=== PATIENT | female | born 1950 | race Caucasian/White ===

== ENCOUNTER → 2017-11-26 09:14 | Outpatient (CLI) | payer OTHER, SELFPAY ==
--- NOTE | 2017-11-26 | DI.MG.S_ITS ---
BILATERAL DIGITAL SCREENING MAMMOGRAM 3D/2D WITH CAD: 11/26/2017 CLINICAL: Routine screening. Family history of breast cancer. Comparison is made to exams dated: 11/08/2016 mammogram, 09/02/2015 mammogram, and 08/06/2014 mammogram - [facility]. The tissue of both breasts is heterogeneously dense. This may lower the sensitivity of mammography. Current study was also evaluated with a Computer Aided Detection (CAD) system. There are benign vascular calcifications in the left breast. No significant masses, calcifications, or other findings are seen in either breast. There has been no significant interval change. IMPRESSION: BENIGN There is no mammographic evidence of malignancy. A 1 year screening mammogram is recommended. NOTE: For mammograms, a report in lay terms will be sent to the patient. Approximately 15% of breast malignancies will not be visualized mammographically. In the management of a palpable breast mass, a negative mammogram must not discourage biopsy of a clinically suspicious lesion. Electronically Signed By: Anitra wu/nadia:11/26/2017 10:50:42 letter sent: Normal Exam ACR BI-RADS Category 2: Benign Finding(s) 3342F
== END ==
PROVIDERS: Visit Provider Nurse Practitioner Family
DX: Z12.31 Encounter for screening mammogram for malignant neoplasm of breast (principal); Z80.3 Family history of malignant neoplasm of breast
CPT/HCPCS: 77063; 77067

== ENCOUNTER → 2018-05-14 09:51 | Outpatient (CLI) | payer OTHER, SELFPAY ==
--- NOTE | 2018-05-14 | DI.RAD.S_ITS ---
This blank DEXA report has been sent in error by the PACS system. The correct and complete report will be forthcoming in 1-2 days. Thank you for your patience and understanding. Dictated by: Carlos Grullon M.D. on 05/14/2018 at 11:53 Approved by: Carlos Grullon M.D. on 05/14/2018 at 11:56
== END ==
PROVIDERS: PCP Nurse Practitioner Family; Visit Provider Nurse Practitioner Family
DX: M85.852 Other specified disorders of bone density and structure, left thigh (principal); Z78.0 Asymptomatic menopausal state; Z82.62 Family history of osteoporosis
CPT/HCPCS: 77080

== ENCOUNTER → 2019-01-07 08:45 | Outpatient (CLI) | payer OTHER, SELFPAY ==
--- NOTE | 2019-01-07 | DI.MG.S_ITS ---
BILATERAL DIGITAL SCREENING MAMMOGRAM 3D/2D WITH CAD: 01/07/2019 CLINICAL: Routine screening. Family history of breast cancer. Comparison is made to exams dated: 11/26/2017 mammogram, 11/08/2016 mammogram, and 09/02/2015 mammogram - [facility]. The tissue of both breasts is heterogeneously dense. This may lower the sensitivity of mammography. Current study was also evaluated with a Computer Aided Detection (CAD) system. There are benign vascular calcifications in the left breast. There are mole markers on the left breast. No significant masses, calcifications, or other findings are seen in either breast. There has been no significant interval change. IMPRESSION: There is no mammographic evidence of malignancy. A 1 year screening mammogram is recommended. This exam was interpreted at Station ID: [id number]. NOTE: For mammograms, a report in lay terms will be sent to the patient. Approximately 15% of breast malignancies will not be visualized mammographically. In the management of a palpable breast mass, a negative mammogram must not discourage biopsy of a clinically suspicious lesion. Electronically Signed By: Armando short/nadia:01/07/2019 18:46:57 letter sent: Normal Exam ACR BI-RADS Category 2: Benign Finding(s) 3342F
== END ==
PROVIDERS: PCP Nurse Practitioner Family; Visit Provider Nurse Practitioner Family
DX: Z12.31 Encounter for screening mammogram for malignant neoplasm of breast (principal); Z80.3 Family history of malignant neoplasm of breast
CPT/HCPCS: 77063; 77067

== ENCOUNTER → 2020-03-08 10:46 | Outpatient (CLI) | payer MEDICARE, SELFPAY ==
--- NOTE | 2020-03-08 | DI.MG.S_ITS ---
BILATERAL DIGITAL SCREENING MAMMOGRAM 3D/2D WITH CAD: 03/08/2020 CLINICAL: Routine screening. Family history of breast cancer. Comparison is made to exams dated: 01/07/2019 mammogram, 11/26/2017 mammogram, and 11/08/2016 mammogram - [facility]. The tissue of both breasts is heterogeneously dense. This may lower the sensitivity of mammography. Current study was also evaluated with a Computer Aided Detection (CAD) system. No significant masses, calcifications, or other findings are seen in either breast. There has been no significant interval change. IMPRESSION: NEGATIVE There is no mammographic evidence of malignancy. A 1 year screening mammogram is recommended. This exam was interpreted at Station ID: [id number]. NOTE: For mammograms, a report in lay terms will be sent to the patient. Approximately 15% of breast malignancies will not be visualized mammographically. In the management of a palpable breast mass, a negative mammogram must not discourage biopsy of a clinically suspicious lesion. Electronically Signed By: Tom hoskins/nadia:03/08/2020 15:56:12 letter sent: Normal Exam ACR BI-RADS Category 1: Negative 3341F
== END ==
PROVIDERS: PCP Nurse Practitioner Family; Referring Provider Nurse Practitioner Family; Visit Provider Nurse Practitioner Family
DX: Z12.31 Encounter for screening mammogram for malignant neoplasm of breast (principal); Z80.3 Family history of malignant neoplasm of breast
CPT/HCPCS: 77063; 77067

== ENCOUNTER 2021-04-13 20:50 | Emergency (ER) | payer MEDICARE, SELFPAY ==
[2021-04-13 21:00] VITALS: BP 140/75; PULSE 72; RESP 16; TEMP 36.8; O2SAT 96; BMI 33.6
--- NOTE | 2021-04-13 21:08 | DI.RAD.S_ITS ---
PROCEDURE: XR HUMERUS LT 2V INDICATIONS: fall,upper arm pain TECHNIQUE: 2 views of the humerus were acquired. COMPARISON: None. FINDINGS: Bones: Fracture involving the surgical neck and greater tuberosity Soft tissues: No suspicious soft tissue calcifications. IMPRESSION: Proximal left humeral fracture as above Dictated by: Poli Singh M.D. on 04/13/2021 at 21:49 Approved by: Poli Singh M.D. on 04/13/2021 at 21:52
--- NOTE | 2021-04-13 21:14 | ED_ITS ---
HPI - Extremity Injury (Upper) General Chief Complaint: Fall Stated Complaint: fall, left shoulder injury Time Seen by Provider: 04/13/21 20:54 Source: patient Mode of arrival: Wheelchair Limitations: no limitations History of Present Illness HPI narrative: 70-year-old female nonsmoker presents with a chief complaint of a left shoulder injury earlier today after tripping and falling onto her left shoulder. She denies significant pain with any range of motion and improvement with rest. She denies any neck or back pain but thinks she did subtly hit her head. She denies any loss of consciousness. She does not take any blood thinners. She had no vomiting. She denies any neck or back pain. Related Data Home Medications Medication Instructions Recorded Confirmed cetirizine 10 mg tablet 10 mg PO QDAYP PRN #0 10/12/07 [VITAMIN C] #0 04/16/11 bisacodyl 5 mg tablet,delayed 5 mg PO QDAY #0 07/16/11 release (Fleet Laxative (bisacodyl)) vitamin B complex (B 1 tab PO EVERY OTHER DAY #0 10/12/16 Complex-Vitamin B12) omeprazole 20 mg capsule,delayed 20 mg PO QDAY #0 02/19/17 release Previous Rx's Medication Instructions Recorded estradiol 10 mcg vaginal tablet 10 mcg VG SEE INSTRUCTIONS #72 tab 11/19/16 (Vagifem) venlafaxine 150 mg 225 mg PO QDAY #90 cap 11/19/16 capsule,extended release 24 hr venlafaxine 75 mg capsule,extended 225 mg PO QDAY #90 cap 11/19/16 release 24 hr (Effexor XR) nystatin 100,000 unit/gram topical 1 ann TOPICAL BID #30 gm 11/28/16 cream buspirone 5 mg tablet 5 mg PO SEE INSTRUCTIONS #90 tab 12/25/16 methocarbamol 500 mg tablet 500 mg PO QIDP PRN #120 tab 12/25/16 ranitidine HCl 150 mg tablet 150 mg PO BID #180 tab 01/08/17 alendronate 70 mg tablet (Fosamax) 0 PO QWEEK #12 tab 02/19/17 lisinopril 10 mg tablet 10 mg PO QDAYP PRN #180 tab 02/19/17 triamterene 75 0 PO QDAY #90 tab 02/19/17 mg-hydrochlorothiazide 50 mg tablet hydrocodone 5 mg-acetaminophen 325 1 tab PO Q4-6H PRN #30 tab 04/13/21 mg tablet ondansetron 4 mg disintegrating 4 mg PO TID-QID PRN #10 tab 04/13/21 tablet Allergies Allergy/AdvReac Type Severity Reaction Status Date / Time alendronate sodium AdvReac Intermediate neck Verified 04/13/21 21:08 [ALENDRONATE SODIUM] stiffness and pain rosuvastatin [ROSUVASTATIN] AdvReac Intermediate muscle Verified 04/13/21 21:08 aches Review of Systems Review of Systems Narrative: GENERAL: Denies chills, fatigue, malaise, fever, sweats. HEENT: Denies sinus pain, ear pain, sore throat, difficulty swallowing, dizziness. RESPIRATORY: Denies dyspnea, cough, wheezing, hemoptysis, sputum. CARDIOVASCULAR: Denies chest pain, palpitations, orthopnea, edema, GASTROINTESTINAL: Denies nausea, vomiting, abdominal pain, diarrhea, constipation, melena. : Denies dysuria, frequency, incontinence, hematuria, urinary retention. MUSCULOSKELETAL: See HPI SKIN: Denies rash, skin lesions, or other NEUROLOGIC: Denies weakness, headache, numbness, change in speech, confusion, seizures, incoordination. PSYCHIATRIC: No concerning psychosocial issues. 12 point review of systems is negative except for those stated above Patient History Surgical History Status post appendectomy Family History Grandmother Colon cancer Social History Smoking Status: Unknown if ever smoked Smoking Status: Unknown if ever smoked alcohol intake frequency: holidays/special occasions only Substance Use Type: does not use Exam Narrative Exam Narrative: GENERAL: [70] year old patient appears stated age. Well- developed patient, in mild distress. GCS 15 HEAD: No evidence of depressed skull fracture, no abrasion or laceration, very subtle small contusion right frontal bone EYES: Pupils equal round and reactive. Extraocular motions intact. No scleral icterus. No injection or drainage. ENT: Nose without bleeding, purulent drainage. Throat without erythema, tonsillar hypertrophy or exudate. Airway patent. NECK: Trachea midline. Non tender CARDIOVASCULAR: Regular rate and rhythm without murmurs, gallops, or rubs. RESPIRATORY: Clear to auscultation. Breath sounds equal bilaterally. No wheezes, rales, or rhonchi. GASTROINTESTINAL: Abdomen soft, non-tender, nondistended. EXTREMITIES: Left shoulder tender to palpate, no obvious deformity, decreased range of motion secondary to pain. No pain in elbow or wrist. BACK: Nontender without deformity or crepitance. No flank tenderness. NEURO: AOx3. SKIN: No rash or erythema of visible areas Initial Vital Signs Initial Vital Signs: Vital Signs Temperature 98.2 F 04/13/21 21:00 Pulse Rate 72 04/13/21 21:00 Respiratory Rate 16 04/13/21 21:00 Blood Pressure 140/75 04/13/21 21:00 Pulse Oximetry 96 04/13/21 21:00 Procedures Orthopedic Splinting/Casting Injury #1: Side: left Upper Extremity Injury Location: shoulder Upper Extremity Immobilizer: sling/shoulder immobilizer (Along with humeral brace) Post splinting neuro exam: intact Post splinting vascular exam: intact Placed by: Nursing Course Orders Ordered: ED Orders 04/13/21 21:08 XR humerus LT 2V Stat Discontinued Medications Hydrocodone Bitart/Acetaminophen (Hydrocodone/Acet 5/325 Prepack) 1 bottle MISC SEEINSTR ONE Stop: 04/13/21 21:40 Last Admin: 04/13/21 21:54 Dose: 1 bottle Documented by: KELSEAOTEM Ondansetron HCl (Ondansetron 4 Mg Odt Prepack) 1 bottle MISC SEEINSTR ONE Stop: 04/13/21 21:40 Last Admin: 04/13/21 21:54 Dose: 1 bottle Documented by: KBROTEHelena Vital Signs Vital signs: Vital Signs - 8 hr 04/13/21 21:00 Temperature 98.2 F Pulse Rate 72 Respiratory Rate 16 Blood Pressure 140/75 Pulse Oximetry 96 MDM - Extremity Injury (Upper) Imaging Data Extremity x-ray #1: Radiologist's Impression: [address] [place] [address] [id number] ReportSigned Patient: Sallie Gibbs LDR#: [id number]: 9Acct:[id number]/Sex: 70 / FDate of Service: 04/13/21Loc: EDAccession Number: [id number] Procedure: XR humerus LT 2V Ordering Provider: Farooq Royal D.O. PROCEDURE: XR HUMERUS LT 2V INDICATIONS: fall,upper arm pain TECHNIQUE: 2 views of the humerus were acquired. COMPARISON: None. FINDINGS: Bones: Fracture involving the surgical neck and greater tuberosity Soft tissues: No suspicious soft tissue calcifications. IMPRESSION: Proximal left humeral fracture as above Dictated by: Poli Singh M.D. on 04/13/2021 at 21:49 Approved by: Poli Singh M.D. on 04/13/2021 at 21:52 Discharge Plan Departure Patient Disposition: Home Clinical Impression: Fracture of proximal end of left humerus Qualifiers: Encounter type: initial encounter Fracture type: closed Fracture alignment: nondisplaced Instructions: Humeral Shaft Fracture Activity Restrictions/Additional Instructions: *You have been diagnosed with [Olya ] *What to do: *Please continue to take your regular medications as directed. [x ] New medication prescriptions sent to your pharmacy: [ [facility]] [ ] New medication written as a paper prescription [x] Tylenol and occasional Motrin for pain *Please follow up with Dr. Manuel Dobson] of [facility] in 2-3 days, call for an appointment. Let them know you were seen in the Emergency Department and that we ask that you be seen in follow up. We will electronically transmit a record of today's note if your PCP is in our system *Return to Emergency Department if you should have any new, worsening or concerning symptoms, such as [worsening pain, significant swelling, cold extremities, numbness, tingling, weakness or other bothersome symptoms Splint Care: Keep splint clean and dry. Elevated affected body part to decrease swelling. OK to use ice pack on the affected body part. Use for 15-20 minutes each time, for 5-6x per day. If you develop worsening pain, numbness, tingling, discoloration of the affected body part, loosen the splint by loosening the JOSE ROBERTO wrap, and either see your doctor for an urgent re-assessment, or return to the Emergency Department. Return to the Emergency Department for any new or worsening symptoms. Prescriptions: New hydrocodone-acetaminophen 5-325 mg tablet 1 tab PO Q4-6H PRN (Reason: pain) Qty: 30 RF: 0 ondansetron 4 mg tablet,disintegrating 4 mg PO TID-QID PRN (Reason: nausea and vomiting) Qty: 10 RF: 0 No Action cetirizine 10 MG tablet 10 mg PO QDAYP PRNQty: 0 RF: 0 [VITAMIN C] Qty: 0 RF: 0 bisacodyl [Fleet Laxative (bisacodyl)] 5 MG tablet,delayed release (DR/EC) 5 mg PO QDAY Qty: 0 RF: 0 vitamin B complex [B Complex-Vitamin B12] 1 EACH tablet 1 tab PO EVERY OTHER DAY Qty: 0 RF: 0 venlafaxine [Effexor XR] 75 MG capsule,extended release 24hr 225 mg PO QDAY Qty: 90 RF: 0 venlafaxine 150 MG capsule,extended release 24hr 225 mg PO QDAY Qty: 90 RF: 0 estradiol [Vagifem] 10 MCG tablet 10 mcg VG SEE INSTRUCTIONS Qty: 72 RF: 1 nystatin 30 GM cream 1 ann Topical BID Qty: 30 RF: 2 buspirone 5 MG tablet 5 mg PO SEE INSTRUCTIONS Qty: 90 RF: 2 methocarbamol 500 MG tablet 500 mg PO QIDP PRNQty: 120 RF: 0 ranitidine HCl 150 MG tablet 150 mg PO BID Qty: 180 RF: 1 omeprazole 20 MG capsule,delayed release(DR/EC) 20 mg PO QDAY Qty: 0 RF: 0 lisinopril 10 MG tablet 10 mg PO QDAYP PRNQty: 180 RF: 1 triamterene-hydrochlorothiazid 75 MG/50 MG tablet 0 PO QDAY Qty: 90 RF: 1 alendronate [Fosamax] 70 MG tablet 0 PO QWEEK Qty: 12 RF: 3 Referrals: Starla Dobson MD [Physician] - Ally Eller ARNP [Primary Care Provider] -
[2021-04-13] MEDS: ONDANSETRON 4 MG ODT PREPACK 1 BOTTLE MISC (21:54)
[2021-04-13] MEDS: HYDROCODONE/ACET 5/325 PREPACK 1 BOTTLE MISC (21:54)
== END 2021-04-13 22:12 | disposition home or self-care (01) ==
PROVIDERS: Emergency Provider Emergency Medicine; PCP Nurse Practitioner Family
DX: S42.202A Unspecified fracture of upper end of left humerus, initial encounter for closed fracture (principal); W01.0XXA Fall on same level from slipping, tripping and stumbling without subsequent striking against object, initial encounter
CPT/HCPCS: 73060; 99283; 99284

== ENCOUNTER → 2021-10-03 10:06 | Outpatient (CLI) | payer MEDICARE, SELFPAY ==
--- NOTE | 2021-10-03 | DI.MG.S_ITS ---
BILATERAL DIGITAL SCREENING MAMMOGRAM 3D/2D WITH CAD: 10/03/2021 CLINICAL: Routine screening. Family history of breast cancer. Comparison is made to exams dated: 03/08/2020 mammogram, 01/07/2019 mammogram, and 11/26/2017 mammogram - [facility]. The tissue of both breasts is heterogeneously dense. This may lower the sensitivity of mammography. Current study was also evaluated with a Computer Aided Detection (CAD) system. No significant masses, calcifications, or other findings are seen in either breast. There has been no significant interval change. IMPRESSION: NEGATIVE There is no mammographic evidence of malignancy. A 1 year screening mammogram is recommended. This exam was interpreted at Station ID: [id number]. NOTE: For mammograms, a report in lay terms will be sent to the patient. Approximately 15% of breast malignancies will not be visualized mammographically. In the management of a palpable breast mass, a negative mammogram must not discourage biopsy of a clinically suspicious lesion. Electronically Signed By: Tom hoskins/nadia:10/03/2021 10:43:13 letter sent: Normal Exam ACR BI-RADS Category 1: Negative 3341F
== END ==
PROVIDERS: PCP Nurse Practitioner Family; Referring Provider Nurse Practitioner Family; Visit Provider Nurse Practitioner Family
DX: Z12.31 Encounter for screening mammogram for malignant neoplasm of breast (principal); M85.89 Other specified disorders of bone density and structure, multiple sites; Z13.820 Encounter for screening for osteoporosis; Z80.3 Family history of malignant neoplasm of breast; Z78.0 Asymptomatic menopausal state; Z87.311 Personal history of (healed) other pathological fracture
CPT/HCPCS: 77063; 77067; 77080

== ENCOUNTER → 2022-10-08 14:17 | Outpatient (CLI) | payer MEDICARE, SELFPAY ==
--- NOTE | 2022-10-08 14:21 | DI.MG.S_ITS ---
BILATERAL DIGITAL SCREENING MAMMOGRAM 3D/2D WITH CAD: 10/08/2022 CLINICAL: Routine screening. Family history of breast cancer. Comparison is made to exams dated: 10/03/2021 mammogram, 03/08/2020 mammogram, 01/07/2019 mammogram, and 11/26/2017 mammogram - [facility]. Both breasts are heterogeneously dense, which may obscure small masses (category c / 51-75% glandular tissue). Current study was also evaluated with a Computer Aided Detection (CAD) system. There are benign calcifications in the right breast. There also are benign vascular calcifications in both breasts. No significant masses, calcifications, or other findings are seen in either breast. There has been no significant interval change. IMPRESSION: BENIGN There is no mammographic evidence of malignancy. A 1 year screening mammogram is recommended. Based on the Tyrer Cuzick model (a risk assessment model) the patient's lifetime risk is 9.7% and her 10 year risk is 8.7%. According to the ACR, ACS, and NCCN guidelines, an annual breast MRI exam along with mammogram is recommended if the patient's lifetime risk is 20% or greater. This exam was interpreted at Station ID: [id number]. NOTE: For mammograms, a report in lay terms will be sent to the patient. Approximately 15% of breast malignancies will not be visualized mammographically. In the management of a palpable breast mass, a negative mammogram must not discourage biopsy of a clinically suspicious lesion. Electronically Signed By: Mo interiano/nadia:10/09/2022 08:39:22 letter sent: Normal Exam ACR BI-RADS Category 2: Benign Finding(s) 3342F
== END ==
PROVIDERS: PCP Nurse Practitioner Family; Referring Provider Nurse Practitioner Family; Visit Provider Nurse Practitioner Family
DX: Z12.31 Encounter for screening mammogram for malignant neoplasm of breast (principal); Z80.3 Family history of malignant neoplasm of breast
CPT/HCPCS: 77063; 77067

== ENCOUNTER → 2023-10-15 13:47 | Outpatient (CLI) | payer MEDICARE, SELFPAY ==
--- NOTE | 2023-10-15 13:49 | DI.CT.S_ITS ---
PROCEDURE: CT UE LT WO CON INDICATIONS: ARTHRITIS OF LEFT GLENOHUMERAL JOINT TECHNIQUE: Noncontrast 0.75 mm thick sections acquired from the acromioclavicular joint to the inferior scapula, with coronal and sagittal reformatting. Quality Addendum: For radiation dose reduction, the following was used: automated exposure control, adjustment of mA and/or kV according to patient size. COMPARISON: [facility] [place], [place], XR SHOULDER 2+ VIEWS LEFT, 10/02/2023, 9:44. FINDINGS: Image quality: Diagnostic Bones: Severe glenohumeral degenerative changes. Mild to moderate acromioclavicular degenerative changes. There is osteolytic changes in the periarticular region of the humeral head. Likely old impaction fracture of the humeral neck. Partially seen cervical and thoracic spondylotic changes. Soft tissues: Bilateral thyroid nodules over 2 cm, consider nonurgent sonographic follow-up. Calcified hilar lymph nodes partially seen, likely due to prior granulomatous process. Suspected small effusion. IMPRESSION: Likely prior impaction fracture with chronic deformity of the humeral neck. Osteolytic changes of the humeral head. Advanced glenohumeral degenerative changes. Mild to moderate acromioclavicular degenerative changes. Suspected small glenohumeral effusion. If there is high concern for further derangement, consider MRI evaluation. Dictated by: Shahbaz Jimenez M.D. on 10/15/2023 at 16:35 Approved by: Shahbaz Jimenez M.D. on 10/15/2023 at 16:39
== END ==
LOC: CT 13:48
PROVIDERS: PCP Family Medicine; Referring Provider Orthopaedic Surgery; Visit Provider Orthopaedic Surgery
DX: M19.012 Primary osteoarthritis, left shoulder (principal)
CPT/HCPCS: 73200

== ENCOUNTER 2023-12-12 06:50 | Day surgery (SDC) | payer MEDICARE, SELFPAY ==
[2023-12-03 12:45] VITALS: BMI 30.4
--- NOTE | 2023-12-12 06:00 | DI.RAD.S_ITS ---
PROCEDURE: XR SHOULDER LT 1V INDICATIONS: post-op total left TECHNIQUE: 1 views of the shoulder were acquired. COMPARISON: [facility], XR SHOULDER 2+ VIEWS LEFT, 10/02/2023, 9:44. FINDINGS: Postoperative changes reflecting left shoulder arthroplasty. Hardware is intact with good anatomic alignment. Postoperative soft tissue changes are present.. IMPRESSION: Postsurgical changes reflecting shoulder arthroplasty. Dictated by: Francy Maguire M.D. on 12/12/2023 at 11:22 Approved by: Francy Maguire M.D. on 12/12/2023 at 11:23
[2023-12-12] MEDS: LACTATED RINGERS 1,000 ML 42 ML IV ×2 (07:05→09:48)
[2023-12-12 07:20] VITALS: BP 102/72; PULSE 81; RESP 16; TEMP 37; O2SAT 95; BMI 30.6
[2023-12-12] MEDS: ACETAMINOPHEN 325 MG TABLET 975 MG PO (07:39)
--- NOTE | 2023-12-12 07:45 | PM.PREOP ---
Pre-operative Note Interval Note History & Physical reviewed/Exam performed by Physician: Yes Changes to H&P: No
--- NOTE | 2023-12-12 07:55 | SUR.OPER ---
Beach chair with skytron shoulder positioner. Lower body on padded OR bed. Head in foam padded head cradle, secured with straps. Non-operative arm secured <90 degrees abduction. Pillow under knees. Safety belt at thigh. Cloth tape over blanket over lower legs.
[2023-12-12 07:57] VITALS: BMI 30.6
--- NOTE | 2023-12-12 08:11 | SUR.PREOP ---
Block start time [0803] . Monitoring initiated and maintained throughout procedure. Oxygen and medications given per anesthesiologist instructions. Patient remained stable throughout procedure, no adverse reactions noted. Block end time [0810].
[2023-12-12] MEDS: CEFAZOLIN 2 GM/100 ML PREMIX 100 ML IV (09:15)
[2023-12-12] MEDS: TRANEXAMIC ACID 1,000 MG VIAL 1000 MG INJ (09:20)
[2023-12-12] MEDS: BUPIVACAINE 0.25% (PF) 30 ML, EPINEPHrine 0.15 MG INJ (09:42)
--- NOTE | 2023-12-12 10:51 | P.OP_ITS ---
Operative Date/Time/Diagnoses Date of procedure: 12/12/23 Time of procedure: 10:51 Pre-op diagnosis: Left proximal humerus avascular necrosis Post-op diagnosis: same Procedure & Clinicians Procedure: Left reverse total shoulder arthroplasty Same procedure as scheduled: Yes Indications: Indications: This is a 73-year-old female who has avascular necrosis status post proximal humerus fracture. Symptoms have been present for years, insidious onset. Patient has failed a reasonable attempt at conservative therapy. After extensive discussion in clinic, they wished to go forward with surgery. Risks and benefits were described including the risk of infection, bleeding, damage to internal structures including nerves. We also discussed the risk of failure of surgery and the need for revision surgery as well as the risk of anesthesia. The patient expressed understanding with these risks and wished to go forward with surgery. Surgeon: Benito Rojo Duralumin Mechanic: Analy Maguire Click Yes if Unassisted: Yes Operative Notes Findings: Findings: Osteoarthritis of the glenoid and humeral head with an intact rotator cuff as noted on preoperative imaging and under direct visualization Closure Type: primary Prosthetic devices, grafts, tissues, transplants, or devices: Tornier implants Base plate: standard 25 mm, Glenosphere: Standard 36 mm Stem: Perform 1 Poly: +0 concentric Estimated Blood Loss (mL): 100 Procedure in detail: Patient was seen in the preoperative holding unit. The correct left shoulder was identified and marked with my initials. Again we discussed the risks and benefits of surgery and they wished to go forward with surgery. The patient was brought back to the operating room and placed supine on the operating table. Smooth endotracheal intubation was performed by anesthesia. All prominences were padded and they were placed into the beach chair position. Intravenous antibiotics were given. The left shoulder was then prepped with the standard sterile preparation and draping. A time-out was then performed in my initials were again identified on the correct shoulder. 1 g of IV tranexamic acid was given. A standard deltopectoral incision was made. Skin flaps were made. The cephalic vein was identified and retracted laterally. This was protected throughout the remainder of the case. Sharp dissection was made along the deltoid, subacromial and subcoracoid space to release adhesions. The conjoined tendon was identified and the axillary nerve was palpated and continuous using the tug test. It was protected throughout the remainder of the case. A brown retractor was placed underneath the deltoid muscle and a darach retractor underneath the conjoint tendon. The subscapularis muscle was ntoed to be intact. The anterior circumflex artery and associated veins on the lower border of the subscapularis were identified and tied off using 0-Vicryl. The biceps tendon was identified in the bicipital groove. This was released from its sheath, and taken from its origin on the glenoid and tied into the pectoralis tendon for a solid tenodesis. We then began a subscapularis peel. The subscapularis was tagged with an Ethibond suture. A 360 degree circumferential release of the subscapularis was performed with protection of the axillary nerve. The coracohumeral ligament was released at the base of the coracoid. The shoulder was then dislocated. Osteophytes were removed using combination of rongeur and osteotome. The rotator cuff was noted to be intact. An intramedullary guide was used set at version of 20?. Using an oscillating saw a conservative humeral head cut was made. Impaction reamers were reamed up to a size 1 stem with a built-in angle 135?. A neck protector was placed. Attention was then turned to the glenoid. After retracting the humeral head posteriorly a circumferential release was performed of the capsule with protection of the axillary nerve. The labrum was then released starting at the biceps anchor and going around the rim a small amount of triceps was released from the inferior glenoid. A center guide pin was then placed using the guide, followed by Reamer. After adequate cartilage was removed the boss was reamed and the centeral hole was drilled and measured. The base plate was then implanted and screwed into place. The peripheral screws were then sequentially drilled, measured, and placed. A 36 standard glenosphere was then selected and screwed into place onto the base plate. Turning back to the humerus, the humeral head was delivered and trialed with a 0 concentric. The arm was taken through range of motion and this was felt to be stable. The trial was then removed and a dilute Betadine wash was then performed with 1 L of sterile saline. Before placing the final implant, drill holes were made in the bicipital groove for the subscapularis repair, and sutures were passed through the drill holes. The final stem was then impacted into the humerus. The shoulder was then reduced and again brought through range of motion and was felt to be stable. The subscapularis was then repaired using a modified racking hitch with nice loupes. The deltopectoral interval was then closed with #2 Ethibond. The skin was closed with 2-0 vicryl and 3-0 Monocryl followed by Aquacel dressing. Patient was awoken from anesthesia and brought back to the postoperative recovery unit without issue. They were placed into a sling. Assisting participation: This operation could not have been safely performed (without compromising the technical results or length of the procedure) without the assistance of a skilled registered nurse surgical services. The registered nurse surgical services was medically necessary for proper positioning, retraction and manipulation of instruments, proper exposure, graft prep, and manipulation of tissue. Complications: none Post-operative Condition: stable Disposition: PACU Plan for aftercare: Postoperative instructions: Sling to remain on for 6 weeks. No external rotation past neutral for 6 weeks. Okay for the sling to come off for shower. Okay to shower over the Aquacel dressing. If any water gets underneath the dressing, remove the dressing. First postoperative visit in 2 weeks.
[2023-12-12 10:52] VITALS: BP 98/41; PULSE 94; RESP 15; TEMP 36.5; O2SAT 94
[2023-12-12 10:57] VITALS: BP 115/63; PULSE 83; RESP 21; TEMP 36.4; O2SAT 94
[2023-12-12 11:04] VITALS: BP 108/56; PULSE 84; RESP 14; TEMP 36.4; O2SAT 94
[2023-12-12 11:10] VITALS: BP 98/56; PULSE 81; RESP 18; TEMP 36.3; O2SAT 97
[2023-12-12 11:50] VITALS: BP 102/57; PULSE 80; RESP 16; TEMP 36.4; O2SAT 97
== END 2023-12-12 12:01 | disposition home or self-care (01) ==
LOC: OR 06:51 → AC 06:53
PROVIDERS: PCP Family Medicine; Referring Provider Orthopaedic Surgery; Visit Provider Orthopaedic Surgery
PROC: (CPT 23472; principal; 2023-12-12 08:30)
DX: M19.012 Primary osteoarthritis, left shoulder (principal); M87.222 Osteonecrosis due to previous trauma, left humerus; G89.18 Other acute postprocedural pain; M25.712 Osteophyte, left shoulder
CPT/HCPCS: 23472; 64450; 73020; C1776; J0171; J0330; J0690; J1100; J1885; J2405; J2704; J3010

== ENCOUNTER → 2024-06-16 09:04 | Outpatient (CLI) | payer MEDICARE, SELFPAY ==
--- NOTE | 2024-06-16 09:07 | DI.CT.S_ITS ---
PROCEDURE: CT CHEST WO CON INDICATIONS: PULMONARY NODULE TECHNIQUE: Noncontrast 5 mm thick sections acquired from the pulmonary apices to the posterior costophrenic angles. 1 mm lung window, 5 mm thick coronal and sagittal and 7 mm axial MIP reformats were then acquired. For radiation dose reduction, the following was used: automated exposure control, adjustment of mA and/or kV according to patient size. COMPARISON: [facility], CT, THORAX WITH CONTRAST, 04/17/2016, 11:55. [facility] [place], [place], XR THORACIC SPINE 2 VIEWS, 08/30/2021, 10:14. FINDINGS: Image quality: Diagnostic. Lower Neck: No enlarged lymph nodes. Thyroid: The thyroid is enlarged, with heterogeneous attenuation; this is burden previously worked up in 2016. Axillae: No enlarged lymph nodes. Chest Wall: Unremarkable. Bones: Compression deformities of the T12, L1, L2 and T6 vertebral body. There is lucency in the superior endplate of T1 (series 4, image 60). 3 mm endplate retropulsion at T12. Lungs and Pleura: No pneumothorax or pleural effusions. Calcified granuloma in the left lower lobe. Mild centrilobular emphysema. No suspicious pulmonary nodules. Heart: Heart size is normal. No pericardial effusion. Thoracic Vessels: The aorta and pulmonary arteries demonstrate normal size. Mediastinum and Beatriz: No enlarged lymph nodes. Calcified left hilar node. Esophagus: No wall thickening. No hiatal hernia. Upper Abdomen: Visualized upper abdomen solid organs and bowel loops appear normal. IMPRESSION: Benign calcified granuloma of the left lower lobe. Multiple compression deformities, without significant endplate retropulsion. Questionable lucency in the superior endplate of the T1 vertebral body. This probably represents artifact from the adjacent left shoulder arthroplasty, but spinal mass is not entirely excluded. Consider MRI with contrast for confirmation and correlate with symptoms. Dictated by: Roque Cardenas M.D. on 06/19/2024 at 12:30 Approved by: Roque Cardenas M.D. on 06/19/2024 at 12:38
== END ==
PROVIDERS: PCP Family Medicine; Referring Provider Physician Assistant; Visit Provider Physician Assistant
DX: R91.1 Solitary pulmonary nodule (principal); E04.9 Nontoxic goiter, unspecified; J43.2 Centrilobular emphysema; M43.8X4 Other specified deforming dorsopathies, thoracic region
CPT/HCPCS: 71250

== ENCOUNTER 2024-08-11 08:13 | Day surgery (SDC) | payer MEDICARE, SELFPAY ==
--- NOTE | 2024-08-11 | PATH_ITS ---
[facility] Accession Number: [id number] No. of containers..01 Tissue . 01 Material submitted: . sigmoid colon - SIGMOID POLYP . 01 Diagnosis: SIGMOID COLON POLYP: Colonic mucosa with benign lymphoid aggregate. No dysplasia or neoplasia identified. Deeper level examination performed. MRV 08/13/2024 1341 Local . 01 Electronically signed: . Pinky Contreras MD, Pathologist NPI- [id number] . 01 Gross description: . SIGMOID POLYP: Received in formalin is 1 fragment(s) of bhatt, soft tissue measuring 0.8 x 0.3 x 0.3 cm submitted entirely in 1 cassette(s) /AJAY 08/12/2024 1858 Local . 01 Pathologist provided ICD-10: K63.89 . 01 CPT . 882344 Specimen Comment: A courtesy copy of this report has been sent to [facility] Performed at: [address] [address], [place], [place] [id number] MD Hugo Reynolds MD Phone: [phone]
[2024-08-11 08:37] VITALS: BP 133/87; PULSE 92; RESP 14; TEMP 37.1; O2SAT 95
[2024-08-11] MEDS: LACTATED RINGERS 1,000 ML 42 ML IV (08:37)
--- NOTE | 2024-08-11 09:22 | PM.HP.IH.1 ---
History of Present Illness History of Present Illness Date Patient Seen: 08/11/24 Time Patient Seen: 09:23 Chief complaint: Screening Colonoscopy Narrative: 73-year-old white female, family history of colon cancer in her father, previous colonoscopy is unremarkable presents for colon cancer screening. [facility] Medical History (Updated 08/11/24 @ 09:24 by Manoj Kirk MD) Colon cancer screening History of COVID-19 (02/2023) HLD (hyperlipidemia) Seasonal allergies Loss of hearing Deafness in right ear Arthritis Meniere's disease of right ear Depression Anxiety GERD (gastroesophageal reflux disease) Asthma Surgical History History of repair of hiatal hernia Hx of appendectomy History of surgery Family History Grandmother Colon cancer Social History household members: spouse Smoking Status: Unknown if ever smoked alcohol intake: current Meds Home Medications and Allergies Home Medications Medication Instructions Recorded Confirmed Type cetirizine 10 mg tablet 10 mg PO QDAYP PRN Seasonal 10/12/07 08/11/24 History allergies ##0 bisacodyl 5 mg tablet,delayed 5 mg PO QDAY ##0 07/16/11 12/03/23 History release (Fleet Laxative (bisacodyl)) estradiol 10 mcg vaginal tablet 10 mcg VG SEE INSTRUCTIONS #72 tabs 11/19/16 08/11/24 Rx (Vagifem) buspirone 5 mg tablet 5 mg PO SEE INSTRUCTIONS #90 tabs 12/25/16 08/11/24 Rx omeprazole 20 mg capsule,delayed 20 mg PO QDAY ##0 02/19/17 08/11/24 History release aspirin 81 mg capsule 81 mg PO DAILY 12/03/23 08/11/24 History nystatin 100,000 unit/gram topical 1 ann topical BID PRN Rash 12/03/23 08/11/24 History cream triamterene 75 0.5 tab PO QDAY 12/03/23 08/11/24 History mg-hydrochlorothiazide 50 mg tablet venlafaxine 150 mg 150 mg PO QDAY 12/03/23 08/11/24 History capsule,extended release 24 hr venlafaxine 75 mg capsule,extended 75 mg PO QDAY 12/03/23 08/11/24 History release 24 hr (Effexor XR) Allergies Allergy/AdvReac Type Severity Reaction Status Date / Time alendronate sodium AdvReac Intermediate neck Verified 08/11/24 08:30 [ALENDRONATE SODIUM] stiffness and pain rosuvastatin [ROSUVASTATIN] AdvReac Intermediate muscle Verified 08/11/24 08:30 aches Review of Systems Review of Systems ROS: Yes All systems reviewed with the patient and are negative except as otherwise documented Exam Vital Signs (past 8 hours): - 08/11/24 08:37 Temperature 98.8 F Pulse Rate 92 H Respiratory Rate 14 Blood Pressure 133/87 Pulse Oximetry 95 Oxygen Delivery Method Room Air Oxygen Delivery Method Room Air Narrative Exam Narrative: Gen: NAD, sitting comfortably in bed, appears well HEENT: Sclera are anicteric, head is normocephalic and atraumatic, trachea is midline. CV: RRR, no JVD Resp: clear to auscultation bilaterally, equal chest wall movement bilaterally Abd: soft, nontender, normoactive bowel sounds Ext: no edema, full range of motion Neuro: Cranial nerves II-XII grossly intact, no focal deficits Skin: No erythema or ecchymosis Assessment & Plan Assessment and plan (1) Colon cancer screening: Status: Acute Assessment & Plan narrative: Patient presents for colonoscopy Risks, benefits, alternatives to colonoscopy explained, including but not limited to bowel perforation or other serious complication requiring surgery at less than 1 in 5000 colonoscopies, abdominal pain, cramping or bleeding and less than 1% of colonoscopies, and the chances that we find a diagnosis that would require further intervention of about 2%. Patient agrees to proceed. Time-Based Coding :: [TOTAL MINUTES] spent with patient and on the chart (including review of chart, obtaining history, exam, reviewing outside data, placing orders, documenting exam and treatment plan, and counseling patient) on [DATE]. [employer] Supervisor Document charge(s): No
--- NOTE | 2024-08-11 09:46 | PM.OP.COLON ---
Operative Date/Time/Diagnoses Date of procedure: 08/11/24 Time of procedure: 09:46 Pre-op diagnosis: Family history of colon cancer Post-op diagnosis: other (Sigmoid polyp) Procedure & Clinicians Study performed: Colonoscopy with cold snare polypectomy of sigmoid polyp Same procedure as scheduled: Yes Indications: Family history of colon cancer Surgeon: Manoj Kirk Procedure Notes SCOAP/Timeout: Performed Procedure in detail: Time-out was performed. Mac was induced. Patient was placed in left lateral decubitus position. The perineum was inspected without any gross abnormality. Lubricated pediatric colonoscope was inserted and advanced to the cecum. The terminal ileum was intubated. The colonoscope was withdrawn slowly inspecting the circumference of the colon. Benign-appearing polyp was noted in the sigmoid colon. This was removed completely with cold snare polypectomy and retrieved. Very small polyps may have been missed, prep quality was adequate. Patient had sigmoid diverticulosis. Retroflexed view of the rectum showed small, non prolapsed nonbleeding internal hemorrhoids. The scope was withdrawn the patient was taken to PACU in good condition. Scope withdrawal time: 7 Findings: divertiulosis and polyp(s) Specimen(s): other (Sigmoid polyp) Complications: none Impression: Sigmoid polyp, diverticulosis Post-procedure Recommendations: Colonoscopy in 5 years Plan for aftercare: Home Follow up: as needed Disposition: PACU
[2024-08-11 09:47] VITALS: BP 115/69; PULSE 88; RESP 12; TEMP 36.1; O2SAT 93
[2024-08-11 09:52] VITALS: BP 106/67; PULSE 95; RESP 10; O2SAT 95
[2024-08-11 10:01] VITALS: BP 116/73; PULSE 91; RESP 13; O2SAT 97
== END 2024-08-11 10:28 | disposition home or self-care (01) ==
PROVIDERS: PCP Family Medicine; Referring Provider Surgery; Visit Provider Surgery
PROC: 0DJD8ZZ Inspection of Lower Intestinal Tract, Via Natural or Artificial Opening Endoscopic (ICD-10-PCS; CPT 45378; principal; 2024-08-11 09:15)
DX: Z12.11 Encounter for screening for malignant neoplasm of colon (principal); Z80.0 Family history of malignant neoplasm of digestive organs; K64.8 Other hemorrhoids; K57.30 Diverticulosis of large intestine without perforation or abscess without bleeding; K63.5 Polyp of colon
CPT/HCPCS: 45385; J2405; J2704

== ENCOUNTER → 2024-09-23 09:38 | Outpatient (CLI) | payer MEDICARE, SELFPAY ==
--- NOTE | 2024-09-23 09:38 | DI.RAD.S_ITS ---
PROCEDURE: XR DEXA AXIAL SKELETON INDICATIONS: AGE RELATED OSTEOPOROSIS,POSTMENOPAUSAL COMPARISON: [facility], , XR DEXA AXIAL SKELETON, 10/03/2021, 10:19. [facility], , XR DEXA AXIAL SKELETON, 05/14/2018, 10:18. FINDINGS: Lumbar Spine: Bone mineral density 1.191 g/cm2, T score 1.3, increased by 20 %. Left Femoral Neck: Bone mineral density 0.651 g/cm2, T score -1.8. Left Hip: Bone mineral density 0.860 g/cm2, T score -0.7, no significant change. Fracture Risk Calculation (when applicable): 10-year fracture risk of a major osteoporotic fracture 18 percent and of a hip fracture 3.7 percent. (T score greater or equal to -1.0 to: NORMAL) (T score from -1.1 to -2.4: OSTEOPENIA) (T score less than or equal to -2.5: OSTEOPOROSIS) IMPRESSION: Low bone mineral density (osteopenia) by WHO classification. Follow-up guidelines as follows: Osteoporosis: Consider a repeat DEXA and Vertebral Fracture Assessment (VFA) exam in 2 years or sooner if medically necessary, to reassess this patient's status. Osteopenia: Consider a repeat DEXA in 2-3 years to reassess this patient's status, or if there is a new clinical indication. Normal: Consider a repeat DEXA in 5 years or sooner, or if there is a new clinical indication. All treatment decisions require clinical judgment and consideration of individual patient factors, including patient preferences, comorbidities, previous drug use, risk factors not captured in the FRAX model (e.g., frailty, falls, vitamin D deficiency, increased bone turnover, interval significant decline in bone density ) and possible under- or over-estimation of fracture risk by FRAX. In addition, the NOF Guide recommends that FDA-approved medical therapies be considered in postmenopausal women and men age >= 50 years with a: * Hip or vertebral (clinical or morphometric) fracture * T-score of <=-2.5 at the spine or hip * Ten-year fracture probability by FRAX of >= 3% for hip fracture or >=20% for major osteoporotic fracture. Dictated by: Kb Rice M.D. on 09/23/2024 at 14:27 Approved by: Kb Rice M.D. on 09/23/2024 at 14:42
== END ==
PROVIDERS: PCP Family Medicine; Referring Provider Physician Assistant; Visit Provider Physician Assistant
DX: Z78.0 Asymptomatic menopausal state (principal); M80.00XD Age-related osteoporosis with current pathological fracture, unspecified site, subsequent encounter for fracture with routine healing
CPT/HCPCS: 77080